=== PATIENT | female | born 1985 | race Caucasian/White ===

== ENCOUNTER → 2020-04-06 13:29 | Outpatient (CLI) | payer BC, SELFPAY ==
--- NOTE | ~2020-04-06 | US_ITS ---
EXAMINATION: US OB transvaginal DATE: 04/06/2020 14:04 INDICATION: viability. Gestational dating. TECHNIQUE: Real-time transvaginal obstetric ultrasound. FINDINGS: Ultrasound dated 02/24/2017 The uterus measures 10.6 x 6.5 x 7.3 cm. There is an intrauterine gestational sac, with pole id entified. The crown rump length measures 1.22 cm, which correlates with a estimated gestational age of 7 weeks 3 days. heart tones are identified measuring 137 BPM. Right ovary measures 4.1 x 2.4 x 3 cm and contains a slightly hypoechoic mass measuring 3 x 2.4 x 2 c m, likely an involuting corpus luteal cyst or hemorrhagic cyst, most likely benign. Left ovary is unr emarkable measuring 3.1 x 2.8 x 2.2 cm. IMPRESSION: 1. SL IUP with an EGA of 7 weeks, 3 days (EDC by current ultrasound of 11/20/2020). Reviewed, dictated and finalized at location A. IMPRESSION: 1. SL IUP with an EGA of 7 weeks, 3 days (EDC by current ultrasound of ).
== END ==
PROVIDERS: Visit Provider Nurse Practitioner
DX: Z36.9 Encounter for antenatal screening, unspecified (principal); Z3A.01 Less than 8 weeks gestation of pregnancy
CPT/HCPCS: 76817

== ENCOUNTER → 2020-04-13 10:26 | Outpatient (CLI) | payer BC, SELFPAY ==
--- NOTE | ~2020-04-13 | US_ITS ---
US OB transvaginal DATE: 04/13/2020 10:50 INDICATION: Vaginal spotting and cramping TECHNIQUE: Real-time imaging via transvaginal approach COMPARISON: None FINDINGS: The uterus measures approximately 10.7 cm height, 6.4 cm AP and 7.3 cm transverse dimension . A normally shaped intrauterine gestational sac is identified with pole and yolk sac. heart rate of 166 bpm. [place]-rump length 1.89 cm, consistent with cysts estimated gestational age of 8 weeks 3 days +/- 5 da ys; LIONEL by ultrasound is 11/20/2020, matching that for LMP. The ovaries measure 4.0 x 2.3 x 3.5 cm on the right and 2.2 x 1.2 x 2.7 cm on the left. Probable hemo rrhagic left ovarian cyst measuring 2.8 x 1.6 x 2.5 cm. There is mild free fluid in the pelvic cul-de -sac. IMPRESSION: Estimated gestational age of 8 weeks 3 days +/- 5 days; LIONEL by ultrasound is 11/20/2020 Probable hemorrhagic 2.8 x 1.6 x 2.5 cm left ovarian cyst and mild free fluid in the cul-de-sac Reviewed, dictated and finalized at Location A. Reviewed, dictated and finalized at location B. IMPRESSION: Estimated gestational age of 8 weeks 3 days +/- 5 days; LIONEL by ultr asound is 11/20/2020 Probable hemorrhagic 2.8 x 1.6 x 2.5 cm left ovarian cyst and mild free fluid i n the cul-de-sac
== END ==
PROVIDERS: Visit Provider Obstetrics & Gynecology Gynecology
DX: O26.851 Spotting complicating pregnancy, first trimester (principal); Z3A.08 8 weeks gestation of pregnancy
CPT/HCPCS: 76817

== ENCOUNTER 2020-04-13 11:46 | Outpatient (RCR) | payer BC, SELFPAY | END 2020-07-12 23:59 | disposition home or self-care (01) | LOC: ANHLAB 11:46 | PROVIDERS: Visit Provider Obstetrics & Gynecology Gynecology | DX: O26.851 Spotting complicating pregnancy, first trimester (principal); Z3A.00 Weeks of gestation of pregnancy not specified | CPT/HCPCS: 36415; 85461 ==

== ENCOUNTER 2020-04-17 16:02 | Emergency (ER) | payer BC, SELFPAY ==
[2020-04-17 16:07] VITALS: PULSE 73; RESP 16; TEMP 36.8; O2SAT 100
[2020-04-17 16:39] LABS: Basophils Absolute Auto 0.1 K/mm3 (0.0-0.1); Basophils Percent Auto 0.6 % (0.2-1.2); Eosinophils Absolute Auto 0.1 K/mm3 (0-0.3); Eosinophils Percent Auto 0.6 % (0-4.4); Hematocrit 36.6 % (37.0-47.0); Hemoglobin 11.7 g/dL (12.0-15.0); Immature Granulocyte Absolute 0.03 K/mm3 (0.00-0.031); Immature Granulocyte Percent A 0.3 % (0-0.5); Lymphocytes Absolute Auto 1.73 K/mm3 (0.9-3.2); Lymphocytes Percent Auto 17.9 % (18.3-44.2); Mean Corpuscular Hemoglobin 26.4 pg (26-34); Mean Corpuscular Volume 82.4 fl (80-100); Monocytes Absolute Auto 0.5 K/mm3 (0.1-0.6); Monocytes Percent Auto 5.1 % (2.6-8.5); Neutrophils Absolute Auto 7.3 K/mm3 (1.3-6.7); Neutrophils Percent Auto 75.5 % (45.5-73.1); Platelet Count Result 271 k/mm3 (150-375); Red Blood Count 4.44 M/mm3 (4.2-5.4); Red Cell Distribution Width 14.7 % (11.5-14.5); White Blood Count 9.6 K/mm3 (4.5-10.0)
[2020-04-17 16:43] LABS: Add Urine Microscopic? YES; Appearance Urine Cloudy (Clear); Bilirubin Urine Negative (Negative); Blood Urine Negative (Negative); Color Urine Yellow (Yellow); Glucose Urine UA 1+ mg/dL (Negative); Ketones Urine Negative (Negative); Leukocyte Esterase Ur Negative LEU/UL (Negative); Mucus Urine Rare /lpf; Nitrate Urine Negative (Negative); Protein Urine Negative (Negative); RBC Urine 0-2 /hpf (0-2); Specific Grav Ur 1.018 (1.001-1.035); Squamous Epithelial Cell Urine Many /hpf (Few); Urobilinogen Urine Negative mg/dL (<2.0); WBC Urine 0-3 /hpf
[2020-04-17 16:54] LABS: Alanine Aminotransferase 13 U/L (4-35); Albumin Level 4.3 g/dL (3.5-5.1); Alkaline Phosphatase 38 U/L (38-126); Anion Gap 8 mmol/L (8-16); Aspartate Amino Transferase 20 U/L (14-36); Bilirubin,Total 0.2 mg/dL (0.2-1.3); Blood Urea Nitrogen 9 mg/dL (7-17); Calcium 9.4 mg/dL (8.4-10.2); Carbon Dioxide 25 mmol/L (22-30); Chloride 101 mmol/L (98-107); Estimated CRCL calculation 115 ml/min; Estimated Glomerular Filt Rate > 60; Glucose 121 mg/dL (65-105); Lipase 71 U/L (23-300); Potassium 3.5 mmol/L (3.4-5.0); Sodium 134 mmol/L (137-145)
[2020-04-17 18:58] VITALS: BP 124/88; PULSE 88; RESP 16; TEMP 36.8; O2SAT 99
[2020-04-17 19:01] VITALS: BP 108/68; PULSE 60; RESP 14; O2SAT 98
[2020-04-17] MEDS: PROMETHAZINE HCL 25 MG/ML AMPUL 12.5 MG IV PUSH (19:22)
[2020-04-17] MEDS: SODIUM CHLORIDE 0.9% IV 1,000 ML 999 ML IV CONT (19:23)
--- NOTE | 2020-04-17 19:24 | ED.NAVMDI ---
HPI - Nausea/Vomiting/Diarrhea General Chief complaint: Nausea/Vomiting/Diarrhea Stated complaint: 9 wks , vomiting/dehydration Time Seen by Provider: 04/17/20 18:58 History of Present Illness HPI Narrative: Patient is a 34-year-old female who presents ER with nausea and vomiting. Worsening over the last 3 to 4 days. Reports she cannot keep anything down. She has been trying Reglan without relief. She is 9 weeks . Sent here for fluids by her OB Dr. Farfan. Denies diarrhea or abdominal pain. She has had an ultrasound to confirm placement of her IUP. Patient has also been taking Pepcid without relief. . Related Data Home Medications Medication Instructions Recorded Confirmed ergocalciferol (vitamin D2) 04/17/20 04/17/20 famotidine 04/17/20 Allergies Allergy/AdvReac Type Severity Reaction Status Date / Time No Known Allergies Allergy Verified 04/17/20 18:57 Review of Systems Review of Systems: All systems reviewed & are unremarkable except as noted in HPI and below Constitutional: Constitutional: Denies chills, Denies fever(s) and Denies weakness ENT: Denies nasal congestion and Denies sore throat Gastrointestinal: Gastrointestinal: Denies abdominal pain, Denies diarrhea, Reports nausea and Reports vomiting PMFSH Past Medical History Medical History (Updated 04/17/20 @ 20:41 by Danish Childress MD) Uterine polyp Surgical History Surgical History (Updated 04/17/20 @ 19:25 by Danish Childress MD) History of D&C Family History Family History (Updated 02/09/16 @ 23:19 by DOCTOR UNKNOWN) Father Hypertension Family history of diabetes mellitus in first degree relative Social History Social History Smoking status: Never smoker Alcohol intake: never Gender identity (if verbalized by the patient): Female Exam Narrative: Exam Narrative: GENERAL: Well-appearing, well-nourished, and in no acute distress. HEAD: Normocephalic, atraumatic. CHEST: Clear to auscultation. No respiratory distress. HEART: Regular rate and rhythm. Normal peripheral pulses. ABDOMEN: Soft, nontender, nondistended. EXTREMITIES: Normal range of motion. No edema. SKIN: Warm, dry, no rash. NEURO: Alert and oriented x3. PSYCH: Normal mood and affect. Course Course Emergency Course: Patient informed of results. Eating and drinking well. Feels better after IV fluid and Phenergan. Discharge home. Vital Signs Vital signs: Vital Signs Temperature 98.2 F 04/17/20 16:07 Pulse Rate 73 04/17/20 16:07 Respiratory Rate 16 04/17/20 16:07 Pulse Oximetry 100 04/17/20 16:07 Temperature 98.2 F 04/17/20 18:58 Pulse Rate 60 04/17/20 19:01 Respiratory Rate 14 04/17/20 19:01 Blood Pressure 108/68 04/17/20 19:01 Pulse Oximetry 98 04/17/20 19:01 MDM - Nausea/Vomiting/Diarrhea Lab Data Result diagrams: 04/17/20 16:12 04/17/20 16:12 Labs: Lab Results 04/17/20 04/17/20 04/17/20 Range/Units 16:12 16:12 16:32 WBC 9.6 (4.5-10.0) K/mm3 RBC 4.44 (4.2-5.4) M/mm3 Hgb 11.7 L (12.0-15.0) g/dL Hct 36.6 L (37.0-47.0) % MCV 82.4 (80-100) fl MCH 26.4 (26-34) pg MCHC 32.0 (32-36) g/dl RDW 14.7 H (11.5-14.5) % Plt Count 271 (150-375) k/mm3 MPV 11.0 H (7.4-10.4) fl Immature Gran % (Auto) 0.3 (0-0.5) % Neut % (Auto) 75.5 H (45.5-73.1) % Lymph % (Auto) 17.9 L (18.3-44.2) % [place] % (Auto) 5.1 (2.6-8.5) % Eos % (Auto) 0.6 (0-4.4) % Baso % (Auto) 0.6 (0.2-1.2) % Lymph # (Auto) 1.73 (0.9-3.2) K/mm3 [place] # (Auto) 0.5 (0.1-0.6) K/mm3 Eos # (Auto) 0.1 (0-0.3) K/mm3 Baso # (Auto) 0.1 (0.0-0.1) K/mm3 Abs Immat Gran (auto) 0.03 (0.00-0.031) K/mm3 Absolute Neuts (auto) 7.3 H (1.3-6.7) K/mm3 Absolute Nucleated RBC 0.0 (0.0-0.012) K/mm3 Nucleated RBC % 0.0 (0.0-0.2) % Sodium 134 L (137-145) mmol/L Potassium 3.5 (3.4-5.0) mm
[2020-04-17 20:57] VITALS: BP 112/74; PULSE 80; RESP 16; O2SAT 99
== END 2020-04-17 21:00 | disposition home or self-care (01) ==
PROVIDERS: Emergency Medicine; Emergency Provider Emergency Medicine; PCP Family Medicine
DX: O21.9 Vomiting of pregnancy, unspecified (principal); Z3A.09 9 weeks gestation of pregnancy
CPT/HCPCS: 36415; 80053; 81001; 83690; 85025; 96374; 99284; J2550; J7030

== ENCOUNTER 2020-06-29 14:13 | Outpatient (CLI) | payer BC, SELFPAY ==
--- NOTE | 2020-06-29 | ECG_ITS ---
Measurements Intervals [place] Rate: 58 P: 60 ND: 155 QRS: 69 QRSD: 88 T: 16 QT: 386 QTc: 380 Interpretive Statements SINUS BRADYCARDIA WITH SINUS ARRHYTHMIA BASELINE ARTIFACT- I, III, AVL, AVF, V1, V4 BORDERLINE ECG Electronically Signed On 06-29-2020 14:40:52 ANALYST by Prabhakar Robles D.O.
== END 2020-06-29 14:14 | disposition home or self-care (01) ==
PROVIDERS: Visit Provider Nurse Practitioner
DX: R00.2 Palpitations (principal); R94.31 Abnormal electrocardiogram [ECG] [EKG]
CPT/HCPCS: 93005

== ENCOUNTER → 2020-07-05 12:57 | Outpatient (CLI) | payer BC, SELFPAY ==
--- NOTE | ~2020-07-05 | US_ITS ---
EXAMINATION: US OB >= 14 weeks Fetus DATE: 07/05/2020 13:20 INDICATION: Second trimester anatomic survey TECHNIQUE: Real-time ultrasound of the pelvis was performed. COMPARISON: None. FINDINGS: There is a single living fetus in vertex presentation. The placenta is posterior and 5.8 cm from the internal cervical os. heart rate is 138 beats per minute (bpm). cardiac activity and fet al movement are noted. The amniotic fluid index is subjectively normal. The following anatomy was identified as normal: 4 chamber heart 3 vessel cord cord insertion kidneys urinary bladder stomach spine diaphragm ventricles cisterna magna cerebellum The following biometric data were obtained: Biparietal diameter (BPD): 5.1 cm; head circumference (HC): 19.4 cm; abdominal circumference (AC): 16 .4 cm; femur length (FL): 3.5 cm. These measurements are concordant. Estimated weight is 425 g +/- 63 g, which correlates with the 96 percentile when 11/20/2020 is u sed as estimated date of delivery. As single measurements, these parameters are each equal to the following estimated gestational ages w ith ranges of +/- 2 standard deviations: BPD: 21 weeks 4 days ( 19 weeks 6 days - 23 weeks 2 days). HC: 21 weeks 5 days ( 20 weeks 2 days - 23 weeks 1 days). AC: 21 weeks 4 days ( 19 weeks 3 days - 23 weeks 4 days). FL: 21 weeks 2 days ( 19 weeks 3 days - 23 weeks 1 days). estimated gestational age based solely on measurements from this exam is 21 weeks 4 days +/- 1 weeks 4 days. IMPRESSION: 1. Single living fetus in vertex presentation. 2. Estimated weight is 425 g +/- 63 g, which correlates with the 96 percentile when 11/20/2020 i s used as estimated date of delivery. Reviewed, dictated and finalized at location A. LY MEMBER CARETAKER IMPRESSION: 1. Single living fetus in vertex presentation. 2. Estimated weight is 425 g +/- 63 g, which correlates with the 96 perce ntile when 11/20/2020 is used as estimated date of delivery.
== END ==
PROVIDERS: Visit Provider Nurse Practitioner
DX: Z36.9 Encounter for antenatal screening, unspecified (principal); Z3A.21 21 weeks gestation of pregnancy
CPT/HCPCS: 76805

== ENCOUNTER 2020-11-10 06:42 | Inpatient (IN) | payer BC, SELFPAY ==
[2020-11-10] VITALS (167 sets, daily range): BP systolic 106–135; BP diastolic 57–92; PULSE 50–95; RESP 18; TEMP 36.1–36.9; O2SAT 90–100; BMI 22.6
[2020-11-10] MEDS: LACTATED RINGERS 1,000 ML 999 ML IV CONT (07:11)
[2020-11-10] MEDS: ONDANSETRON INJ 4 MG/2 ML VIAL IV PUSH (07:11)
--- NOTE | 2020-11-10 07:12 | LDADM ---
This patient, Padmini Caputo, was admitted to Labor/Delivery/Recovery 110 on 11/10/20 at 06:42. Plans for labor, pain management and were discussed with patient. Patient/family oriented to hospital policies and general routines including ID bracelet, bed and alarms, visiting hours, pain management, procedures, bathroom and other care routines, personal items, smoking policy, room service/diet and guest tray routines, security routines, and visiting hours. Patient/Family are encouraged to report perceived risks to care and to ask questions if they do not understand what they are told or what they should do. See OBIX for further documentation.
[2020-11-10 07:14] LABS: Basophils Percent Auto 0.2 % (0.2-1.2); Eosinophils Percent Auto 0.3 % (0-4.4); Hematocrit 44.1 % (37.0-47.0); Hemoglobin 14.2 g/dL (12.0-15.0); Immature Granulocyte Absolute 0.04 K/mm3 (0.00-0.031); Immature Granulocyte Percent A 0.4 % (0-0.5); Lymphocytes Absolute Auto 1.61 K/mm3 (0.9-3.2); Lymphocytes Percent Auto 18.1 % (18.3-44.2); Mean Corpuscular HGB Conc 32.2 g/dl (32-36); Mean Corpuscular Hemoglobin 28.5 pg (26-34); Mean Corpuscular Volume 88.4 fl (80-100); Monocytes Absolute Auto 0.6 K/mm3 (0.1-0.6); Monocytes Percent Auto 6.4 % (2.6-8.5); Neutrophils Absolute Auto 6.6 K/mm3 (1.3-6.7); Neutrophils Percent Auto 74.6 % (45.5-73.1); Platelet Count Result 154 k/mm3 (150-375); Red Blood Count 4.99 M/mm3 (4.2-5.4); Red Cell Distribution Width 13.8 % (11.5-14.5); White Blood Count 8.9 K/mm3 (4.5-10.0)
--- NOTE | 2020-11-10 07:24 | WPDANESEPP ---
Anes - Eval Pre Procedure Procedure: labor epidural Date/Time: 11/10/20 07:24 Surgeon: leonardo Preop Diagnosis: pain during labor Pre Op Diagnosis: CONTRACTIONS Patient Data Age: 35 Gender: F Height: Weight: Last Vital Signs Pulse 66 11/10/20 07:08 BP 122/84 11/10/20 07:08 Allergies Allergy/AdvReac Type Severity Reaction Status Date / Time No Known Allergies Allergy Verified 04/17/20 18:57 Home Medications Medication Instructions Recorded Confirmed Type ergocalciferol (vitamin D2) 1,250 mcg PO WEEKLY 04/17/20 11/10/20 History PNV cmb#95-ferrous fumarate-FA 1 tablet PO DAILY 10/23/20 11/10/20 History [] buspirone 10 mg PO BID 10/23/20 11/10/20 History ferrous sulfate [Iron (ferrous 325 mg PO DAILY 10/23/20 11/10/20 History sulfate)] metoclopramide HCl 10 mg PO Q6H PRN 10/23/20 11/10/20 History omeprazole 20 mg PO DAILY 10/23/20 11/10/20 History ondansetron HCl [Zofran] 4 mg PO Q6H PRN 10/23/20 11/10/20 History sertraline [Zoloft] 150 mg PO DAILY 10/23/20 11/10/20 History Laboratory Tests 11/10/20 11/10/20 07:07 07:08 WBC 8.9 K/mm3 K/mm3 (4.5-10.0) RBC 4.99 M/mm3 M/mm3 (4.2-5.4) Hgb 14.2 g/dL g/dL (12.0-15.0) Hct 44.1 % % (37.0-47.0) MCV 88.4 fl fl (80-100) MCH 28.5 pg pg (26-34) MCHC 32.2 g/dl g/dl (32-36) RDW 13.8 % % (11.5-14.5) Plt Count 154 k/mm3 k/mm3 (150-375) MPV 12.0 fl H fl (7.4-10.4) Immature Gran % (Auto) 0.4 % % (0-0.5) Neut % (Auto) 74.6 % H % (45.5-73.1) Lymph % (Auto) 18.1 % L % (18.3-44.2) [place] % (Auto) 6.4 % % (2.6-8.5) Eos % (Auto) 0.3 % % (0-4.4) Baso % (Auto) 0.2 % % (0.2-1.2) Lymph # (Auto) 1.61 K/mm3 K/mm3 (0.9-3.2) [place] # (Auto) 0.6 K/mm3 K/mm3 (0.1-0.6) Eos # (Auto) 0.0 K/mm3 K/mm3 (0-0.3) Baso # (Auto) 0.0 K/mm3 K/mm3 (0.0-0.1) Abs Immat Gran (auto) 0.04 K/mm3 H K/mm3 (0.00-0.031) Absolute Neuts (auto) 6.6 K/mm3 K/mm3 (1.3-6.7) Absolute Nucleated RBC 0.0 K/mm3 K/mm3 (0.0-0.012) Nucleated RBC % 0.0 % % (0.0-0.2) RPR Pending Patient hx anesthesia problems: none Family hx anesthesia problems: none PMFSH Past Medical History Medical History (Updated 11/10/20 @ 07:25 by Shawanda Barrera CRNA) Anxiety Depression IUP (intrauterine ), incidental Uterine polyp Surgical History Surgical History (Updated 04/17/20 @ 19:25 by Danish Childress MD) History of D&C Family History Family History Father Hypertension Family history of diabetes mellitus in first degree relative Social History Social History Smoking status: Never smoker Alcohol intake: never Substance use: never Gender identity (if verbalized by the patient): Female Spiritual care concerns: No Exam Day of Procedure 11/10/20 07:24
[2020-11-10] MEDS: LACTATED RINGERS 1,000 ML 125 ML IV CONT ×2 (07:35→14:03)
--- NOTE | 2020-11-10 15:05 | WPDOBADMIT ---
Obstetrics - Admit Note Admission Note: Patient comfortable with epidural. cervix 9 cm. fht reassuring record reviewed. No pertinent additions to the history and/or any subsequent changes in the physical findings that are not consistent with the expected course of the were found. Additions to the history and/or subsequent changes in the physical findings follow. None.
[2020-11-10] MEDS: OXYTOCIN 30 UNITS/NS 500 ML 30 UNITS/500 ML BAG 999 UNITS IV CONT (16:39)
--- NOTE | 2020-11-10 16:57 | PM.OBPRVD ---
OB - Delivery Note Procedure Delivery date: 11/10/20 Procedure: Intrapartal events: None Induction method: AROM Delivery augmentation: rupture of membranes Delivery monitor: external FHT and external uterine Route of delivery: Laceration Description: Perineal - 2nd Degree Delivery repair: vicryl Specimen: Yes Quantitative Blood Loss (ml): 130 Anesthesia type: Epidural [place] Baby Date of : 11/10/20 Time of : 16:36 Weeks of gestation at delivery: 38 Infant gender: Male Weight (pounds): 8 Weight (ounces): 13 presentation: vertex position: Left Occiput Anterior Placenta delivery description: Spontaneous cord vessel description: 3 Vessels score one minute: 9 score five minutes: 9
[2020-11-10] MEDS: OXYTOCIN 30 UNITS/NS 500 ML 30 UNITS/500 ML BAG 125 UNITS IV CONT (17:14)
[2020-11-10] MEDS: BENZOCAINE 20% AER SPR (*SP) 56 GM CAN 1 SPRAY TOPICAL (18:06)
[2020-11-10] MEDS: IBUPROFEN 600 MG TABLET PO (18:06)
[2020-11-10] MEDS: WITCH HAZEL 40 PADS 1 PAD TOPICAL (18:06)
[2020-11-10] MEDS: SERTRALINE HCL 50 MG TABLET 150 MG PO (19:45)
[2020-11-10] MEDS: busPIRone HCL 10 MG TABLET PO (19:46)
--- NOTE | 2020-11-10 20:00 | PC.NURSE ---
Patient transferred to post room #287 via wheel chair. Support person present. Oriented to unit, room, information board, rooming in, admission packet and security measures. Patient verbalizes understanding.
[2020-11-10] MEDS: ACETAMINOPHEN 325 MG TABLET 650 MG PO (21:33)
[2020-11-11] VITALS: BP 119/69; PULSE 70; RESP 18; TEMP 36.5; O2SAT 100
[2020-11-11] MEDS: IBUPROFEN 600 MG TABLET PO ×3 (04:19→17:03)
[2020-11-11 04:20] VITALS: BP 123/76; PULSE 59; RESP 16; TEMP 36.2; O2SAT 100
[2020-11-11 05:25] LABS: Hematocrit 33.6 % (37.0-47.0); Hemoglobin 11.3 g/dL (12.0-15.0)
[2020-11-11 08:30] VITALS: BP 117/75; PULSE 66; RESP 16; TEMP 36.6; O2SAT 98
[2020-11-11] MEDS: DOCUSATE SODIUM 100 MG CAPSULE PO ×2 (08:48→17:03)
[2020-11-11] MEDS: MULTIVIT/MIN/PREN/FOL AC/IRON TABLET 1 TAB PO (08:48)
[2020-11-11] MEDS: busPIRone HCL 10 MG TABLET PO ×2 (08:48→17:03)
--- NOTE | 2020-11-11 09:38 | WPDANLDPN2 ---
Anes-Prog Note L&D Date/Time: 11/11/20 09:38 Comfortable throughout: labor and delivery Neuraxial method: epidural Epidural/Spinal procedure site: clean & non-tender Neuro status: Neuro function grossly intact. Cardiovascular status: normal Respiratory status: normal Airway patency: baseline Mental status: baseline Post-Op hydration status: normal Vital Signs: Last Vital Signs Temp 36.6 C 11/11/20 08:30 Pulse 66 11/11/20 08:30 Resp 16 11/11/20 08:30 BP 117/75 11/11/20 08:30 Pulse Ox 98 11/11/20 08:30 Pain score (VAS): 0/10. Patient resting in bed at time of assessment, appears comfortable. Support person at bedside. I/O: Intake & Output 11/10/20 11/11/20 11/11/20 23:59 07:59 15:59 Intake Total 500 Balance 500 Post-procedural complaints: none Patient feedback: Patient satisfied with anesthetic care.
[2020-11-11 12:34] VITALS: BP 124/71; PULSE 62; RESP 16; TEMP 36.3; O2SAT 98
--- NOTE | 2020-11-11 13:54 | PM.OBPNVD ---
OB - PN: Subj Subjective Date/time seen: 11/11/20 13:54 S: doing well no complaints. OB - PN: Obj Data Labs CBC & Chem 7: 11/11/20 04:26 Labs: Laboratory Results - last 24 hr 11/11/20 04:26 Hgb 11.3 L Hct 33.6 L OB - PN A/P Assessment and Plan (1) (normal spontaneous vaginal delivery): Code(s): O80 - Encounter for full-term uncomplicated delivery Status: Acute Assessment and Plan: continue with pp care. Time Spent With Patient Time: Total time spent is greater than 50% in coordination of care (as documented) at patient's floor/unit and/or counseling patient: Exam GI: Other: ff below umbilicus
[2020-11-11 17:15] VITALS: PULSE 62; RESP 16; O2SAT 98
[2020-11-11] MEDS: SERTRALINE HCL 50 MG TABLET 150 MG PO (18:59)
[2020-11-11 19:00] VITALS: BP 118/79; PULSE 64; RESP 18; TEMP 36.6; O2SAT 96
--- NOTE | 2020-11-11 22:54 | PC.NURSE ---
Patient viewed the discharge video Mother & Baby Care, The First Two Weeks online. Patient was given the opportunity and encouraged to ask questions. Patient verbalized understanding of information shared and has been given the mother/baby guide for home reference.
[2020-11-12] MEDS: DOCUSATE SODIUM 100 MG CAPSULE PO (07:19)
[2020-11-12] MEDS: IBUPROFEN 600 MG TABLET PO (07:20)
[2020-11-12] MEDS: MULTIVIT/MIN/PREN/FOL AC/IRON TABLET 1 TAB PO (07:20)
[2020-11-12] MEDS: busPIRone HCL 10 MG TABLET PO (07:23)
[2020-11-12] MEDS: PANTOPRAZOLE 40 MG TABLET PO (07:26)
[2020-11-12] MEDS: LANOLIN (LANSINOH) 7.5 GM CREAM 1 APPLIC TOPICAL (07:27)
[2020-11-12 07:30] VITALS: BP 116/71; PULSE 71; RESP 18; TEMP 36.3; O2SAT 98
--- NOTE | 2020-11-12 09:59 | P.PNOB_ITS ---
OB - PN: Subj Subjective Date/time seen: 11/12/20 09:59 doing well no complaints. OB - PN: Obj Data Labs CBC & Chem 7: 11/11/20 04:26 OB - PN A/P Assessment and Plan (1) (normal spontaneous vaginal delivery): Code(s): O80 - Encounter for full-term uncomplicated delivery Status: Acute Assessment and Plan: continue with pp care. Time Spent With Patient Time: Total time spent is greater than 50% in coordination of care (as docume nted) at patient's floor/unit and/or counseling patient: Exam Narrative: Exam Narrative: ff below umbilicus
--- NOTE | 2020-11-12 10:00 | PM.OBDSVD ---
DS: Admitting Diagnosis Admitting Diagnosis Admitting Diagnosis: Labor OB - DS: Summary OB Procedures : Ultrasound OB Procedures Intrapartum: Spontaneous Vag Delivery OB Procedures: : None Peripartum Data Delivery Method: Natural Vaginal Laceration Description: Perineal - 2nd Degree complications: none Time Spent with Patient Time attestation: Total time spent providing and/or coordinating discharge services: DS: Data Data Completed and Pending Pending studies at discharge: Pending at discharge 11/10/20 14:46 Surgical [PTH] Routine Discharge Plan Discharge Attending physician on discharge: Jewel Calderón Discharging Clinician: Jewel Calderón Patient Disposition: Home, Self-Care Activity: may shower and pelvic rest Diet: as tolerated Patient Instructions: Antibiotic Form Stand Alone Forms: General Discharge Information Follow-up/Referrals: Jewel Calderón MD [Physician] - Discharge Medications: Continued ergocalciferol (vitamin D2) 1,250 mcg (50,000 unit) capsule 1,250 mcg PO WEEKLY RF: 0 sertraline [Zoloft] 100 mg Tablet 150 mg PO DAILY RF: 0 ferrous sulfate [Iron (ferrous sulfate)] 325 mg (65 mg iron) Tablet 325 mg PO DAILY RF: 0 buspirone 10 mg Tablet 10 mg PO BID RF: 0 omeprazole 20 mg Tablet,Delayed Release (Dr/Ec) 40 mg PO DAILY RF: 0 PNV cmb#95-ferrous fumarate-FA [] 28 mg iron- 800 mcg Tablet 1 tablet PO DAILY RF: 0 Discontinued ondansetron HCl [Zofran] 4 mg Tablet 4 mg PO Q6H PRN (Reason: Nausea) RF: 0 metoclopramide HCl 10 mg Tablet 10 mg PO Q6H PRN (Reason: Nausea) RF: 0 Date of admission: 11/10/20 06:42 Primary Care Provider: PHYSICIAN,TUBE BACKER Admitting Provider: Sabrina Farfan Attending physician on admission: Sabrina Farfan Condition: Stable
[2020-11-13 11:30] LABS: Rapid Plasma Reagin Non-Reactive (NonReactive)
[2020-11-14 09:00] VITALS: BP 122/84; PULSE 77; RESP 16; TEMP 37.4; O2SAT 97
== END 2020-11-12 14:08 | disposition home or self-care (01) | DRG 806 ==
LOC: ANHOB2 11-12 12:55 → ANHLDR 11-13 16:08 → ANHOB2 11-13 16:08
PROVIDERS: Admitting Provider Obstetrics & Gynecology; Visit Provider Obstetrics & Gynecology
DX: O77.0 Labor and delivery complicated by meconium in amniotic fluid (principal); O98.32 Other infections with a predominantly sexual mode of transmission complicating childbirth; Z37.0 Single live birth; Z3A.38 38 weeks gestation of pregnancy; B00.9 Herpesviral infection, unspecified; O36.8330 Maternal care for abnormalities of the fetal heart rate or rhythm, third trimester, not applicable or unspecified; O70.1 Second degree perineal laceration during delivery; O99.62 Diseases of the digestive system complicating childbirth; K21.9 Gastro-esophageal reflux disease without esophagitis; O99.344 Other mental disorders complicating childbirth; F41.8 Other specified anxiety disorders
CPT/HCPCS: 36415; 85014; 85018; 85025; 86592; 86850; 86900; 86901; 88307; A9270; J2405; J2590; J2795; J7120

== ENCOUNTER 2020-11-14 10:56 | Outpatient (RCR) | payer BC, SELFPAY ==
--- NOTE | 2020-11-14 14:44 | PC.NURSE ---
IN 1005 OUT 1100 HISTORY: Pt. delivered at [facility] at term. had no complications after delivery. Mother had no complications after delivery. is now 4 days old. appears to be well cared for. Infant will be seen by ICP as scheduled this . Mother reports: She has struggled with latching since . is eager, latching shallow causing cracks and blistering to nipples. Infant is feeding every 2-3 hours nursing for 20-25 minutes per feeding. Mother has not pumped or supplemented Mother wishes: Resolve latch issues. Currently at 4 wets per day and 4-5 green/yellow seedy stools per day. weight: 8#3 Discharge weight: 7#13 Last Weight:7#11 today at follow up visit OBSERVATION: Mother has cracks,scabbing to both nipples, right more than left. Mother puts to breast in cradle, allowing infant to self attach shallow to nipple. Infant does not have good alignment to breast or level to breast. Mother is grimacing in pain. Requested mother release latch. Assisted with pillows and wrist roll. Reviewed positioning/alignment in cross cradle, holding breast in U hold and guided asymmetrical latch on. is very busy with hands to mouth and thrashing head. Mother has difficulties holding to start a good latch. FOB assists with holding infant hands. Infant was able to latch correctly and deeply, (with assist). Mother continues to report pain with feeding. Latch appeared correct by all markers of flanged lips, wide open mouth, and rhythmical draws. nursed eagerly, with steady draws and frequent swallowing noted. Reviewed signs of a correct latch, effective nursing and suck swallow ratio. Demonstrated how to adjust latch more deeply while infant remains feeding. Several attempts to adjust latch without relief to mother. Feeding options reviewed to pump and bottle feed for 24 hours to allow nipples to heal or to attempt latch using nipple shield. Mother would like to attempt nursing using the nipple shield. Nipple shield provided to mother due to cracked nipples. Instructions given on application and cleaning of shield. Discussed nipple shield precautions and possible complications. Patient able to return demonstration on proper application of shield. Discussed the need to initiate pumping if infant continues to nurse with the shield. Patient verbalizes understanding. With shield in place was able to latch deeply and nurse with less discomfort to mother. Infant was able to maintain latch nursing with steady draws and occasional swallowing noted. Mother reports much less discomfort, only slight tenderness with this feeding. Reviewed to pump a few minutes after each feeding using shield. Infant nursed for 20 minutes, and content after feeding. Mother reports she has minimal tenderness at this time. Reviewed nipple care of lanolin and warm compresses as needed. Follow up phone call scheduled for after ICP appointment. PLAN: Mother will follow above feeding plan. Mother will call with further questions or concerns.
== END 2021-01-01 08:16 | disposition home or self-care (01) ==
LOC: ANHOBOP 10:56
PROVIDERS: PCP Pediatrics; Visit Provider Pediatrics
DX: Z39.1 Encounter for care and examination of lactating mother (principal)
CPT/HCPCS: 99212; G0463

== ENCOUNTER 2022-12-31 14:40 | Outpatient (RCR) | payer BC, SELFPAY ==
--- NOTE | 2022-12-31 16:26 | OPREHPOC ---
Outpatient Therapy Plan of Care This is a Multidisciplinary Plan of Care that may contain components documented by all disciplines (PT, OT, and ST.) PT Problem 1 PT Problem #1 Knowledge Deficit PT Goal 1 Goal Pt to report IND with HEP Target Visit 4 PT Problem 2 PT Problem #2 Pain PT Goal 1 Goal Pt to report shoulder pain no greater than 3/10 in the last week Target Visit 4 PT Goal 2 Goal Pt to report 75% improvement in overall symptoms. PT Problem 3 PT Problem #3 Impaired Sensation PT Goal 1 Goal Pt to report no altered sensations in the last week Target Visit 4 PT Problem 4 PT Problem #4 Impaired Strength PT Goal 1 Goal Pt to demonstrate equal scapular mobility with resisted shoulder motions.
--- NOTE | 2022-12-31 16:26 | PTOPEVAL1 ---
Assessment and note entered by Nehal Ochoa, PT, DPT Evaluation Information Assessment Status Evaluation Diagnosis cervicalgia Onset ~1 month Subjective Information Pt states she initially has a pain under her R shoulder blade, without neck pain. She woke up one day and could not laterally flex or rotate her head to the R, this felt better after about a week . She continues to have a dull ache under the shoulder blade. She went to the chiropractor and they initially thought a herniated disk. She does a lot of yoga and states that handstands, forearm stands, and head stands increase her pain. Reported Pain Level Pain Score 2: Self Report Assessment PT Clinical Summary Padmini presents to therapy today for her initial evaluation with a diagnosis of neck pain. Today she demonstrates decreased motion with R rotation and R lateral flexion. 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 She reports an increase in pain with any closed chair shoulder/scapular motion. Skilled physical therapy services are indicated to improve shoulder stability, body mechanics, and to return to PLOF without limitations. Plan of Care Interventions Electrical Stimulation,Hot Pack/Cold Pack,Manual Therapy,Neuro Re-education,Patient/Caregiver Educati,Therapeutic Activities,Therapeutic Exercise PT Services Indicated Yes Treatment Frequency and 1x/wk for 4 wks Duration These treatments will address the objective and functional deficits as defined above. The patient will be advanced safely and appropriately in order for the patient to progress towards his/her prior level of function. Additional exercises will be introduced and as well as a comprehensive home exercise program upon discharge, if needed, ?to ensure carryover of functional gains achieved in the clinic. This treatment plan has been reviewed and agreement upon by the patient.
--- NOTE | 2023-01-10 09:56 | PCPTNOTE ---
Patient called & cancelled scheduled appointment this date due to not having transportation.
--- NOTE | 2023-03-10 11:37 | PTOPDC ---
Assessment and note entered by Nehal Ochoa, PT, DPT Evaluation Information Assessment Status Discharge - Pt Not Present Diagnosis cervicalgia Onset ~1 month Subjective Information Pt was evaluated on 12/31 and called her next appointment on 01/09 and never called back to reschedule. Assessment PT Clinical Summary Pt completed 1 visit of skilled therapy on 12/31/22. She will be discharged at this time d/t poor therapy attendance. If she needs additional therapy at a later date, she will need a new order . Plan of Care PT Services Indicated No
== END 2023-03-10 13:09 | disposition home or self-care (01) ==
LOC: ANHGOSHPT 14:40
PROVIDERS: PCP Family Medicine; Visit Provider Family Medicine
DX: M54.2 Cervicalgia (principal)
CPT/HCPCS: 97110; 97161

== ENCOUNTER → 2023-01-02 14:51 | Outpatient (CLI) | payer BC, SELFPAY ==
--- NOTE | ~2023-01-02 | XR_ITS ---
[id number] INDICATION: Cervicalgia TECHNIQUE: 3 views of the cervical spine. FINDINGS: No prior studies for comparison. The cervical spine is visualized to the cervicothoracic junction. There is no prevertebral soft tiss ue swelling, listhesis, or loss of vertebral body height. Intervertebral disc spaces are normal. Th e osseous central canal is patent. No displaced cervical spine fractures are identified. IMPRESSION: 1. No significant osseous abnormality of the cervical spine. Reviewed, dictated and finalized at location L.
== END ==
PROVIDERS: PCP Family Medicine; Visit Provider Family Medicine
DX: M54.2 Cervicalgia (principal)
CPT/HCPCS: 72040

== ENCOUNTER → 2023-02-24 15:58 | Outpatient (CLI) | payer BC, SELFPAY ==
--- NOTE | ~2023-02-24 | US_ITS ---
EXAMINATION: US soft tissue head and neck DATE: 02/24/2023 16:17 INDICATION: Localized swelling, mass and lump, neck. TECHNIQUE: Multiple grayscale and Doppler ultrasound images of the head and neck were obtained. COMPARISON: CT neck 12/07/2014 FINDINGS: There is no abnormal mass or lymphadenopathy in the patient's area of concern in right neck . IMPRESSION: 1. No abnormal mass or lymphadenopathy in the patient's area of concern in right neck. Reviewed, dictated and finalized at location A. IMPRESSION: 1. No abnormal mass or lymphadenopathy in the patient's area of concern in righ t neck.
== END ==
PROVIDERS: PCP Nurse Practitioner Family; Visit Provider Nurse Practitioner Family
DX: R22.1 Localized swelling, mass and lump, neck (principal)
CPT/HCPCS: 76536

== ENCOUNTER 2023-03-18 09:00 | Outpatient (CLI) | payer BC, SELFPAY ==
--- NOTE | ~2023-03-18 | US_ITS ---
EXAMINATION: US transvaginal DATE: 03/18/2023 09:48 INDICATION: Pelvic pain TECHNIQUE: Multiple endovaginal sonographic images of the pelvis were obtained. COMPARISON: None. FINDINGS: The uterus measures 6.8 x 3.5 x 4.9 cm. The endometrial complex measures 6 mm. The right ov geo measures 2.4 x 1.7 x 2.3 cm. The left ovary measures 3. 2 x 2 by 2.1 cm. There is normal vascular flow in the ovaries. There is no free fluid in the pelvis. IMPRESSION: 1. No sonographic correlate for the patient's symptoms. Reviewed, dictated and finalized at location L.
== END 2023-03-18 09:01 ==
PROVIDERS: PCP Nurse Practitioner; Visit Provider Nurse Practitioner
DX: R10.2 Pelvic and perineal pain (principal)
CPT/HCPCS: 76830

== ENCOUNTER 2023-06-27 13:58 | Outpatient (CLI) | payer BC, SELFPAY ==
--- NOTE | ~2023-06-27 | XR_ITS ---
AP view of the pelvis and AP and lateral views of the right hip Clinical history: Pain Findings: No acute fracture or dislocation is seen. Osseous alignment is anatomic. Bilateral hip and SI joint spaces are preserved. Soft tissues are unremarkable. Impression: No significant abnormality is seen. Reviewed, dictated and finalized at [facility]. HEALTH NURSE Impression: No significant abnormality is seen.
== END 2023-06-27 13:59 ==
PROVIDERS: PCP Nurse Practitioner Family; Visit Provider Nurse Practitioner Family
DX: M25.551 Pain in right hip (principal)
CPT/HCPCS: 73502

== ENCOUNTER 2023-07-21 14:13 | Outpatient (CLI) | payer BC, SELFPAY ==
--- NOTE | ~2023-07-21 | MR_ITS ---
EXAMINATION: MR hip RT wo con DATE: 07/21/2023 15:23 INDICATION: Right hip pain TECHNIQUE: Magnetic resonance imaging (MRI) of the right hip was performed without intravenous contr ast. Sequences included full-field axial PD-weighted FS FSE and T1-weighted FSE, coronal of the pelvi s with PD-weighted FS FSE, T2-weighted FSE and T1-weighted FSE, small field of view of the right hip with axial PD-weighted FS FSE, sagittal PD-weighted FS FSE, coronal PD-weighted FS FSE and coronal T2 weighted FSE. Additional radial T1-weighted FGR oriented orthogonal to the acetabular rim were obt ained for evaluation of the labrum. COMPARISON: Right hip radiographs dated 06/27/2023 FINDINGS: Bones/labrum/cartilage: Alignment is normal. No fracture, avascular necrosis or pathologic marrow replacing process. There i s a tear of the anterosuperior right acetabular labrum which extends to the posterosuperior labrum. T here is a small central os acetabulum within the intervening superolateral labrum. There is a small p noelle labral cyst arising at the 1:30 position of the anterosuperior labrum. There is a small fissure a t the superolateral chondral labral junction near the level of the acetabulum. Articular cartilage ap pears otherwise normal. There appears be decreased femoral head neck offset at the anterosuperior rig ht femoral neck which could predispose towards cam-type femoral acetabular impingement. Mild lower teddy mbar spondylosis with mild disc height loss and disc bulge resulting in minimal central canal stenosi s at L4-L5. Fluid: Symmetric physiologic amount of fluid within both hip joints. There is a small amount of likely physi ologic free fluid in the cul-de-sac. Soft tissues: Normal and symmetric muscle bulk and signal in the pelvis and visualized proximal thighs. The iliopso as, gluteal and proximal hamstring tendons are normal. There are few small bilateral T2 hyperintense ovarian cysts/follicles the largest cyst/dominant follicle measuring 1.6 cm the right ovary. Limited evaluation of visceral organs of the pelvis is otherwise unremarkable. No pathologically enlarged pe lvic/inguinal lymphadenopathy. IMPRESSION: 1. Tear of the anterosuperior to posterior superior right acetabular labrum with intervening superola teral os acetabulum. 2. Decreased anterosuperior right femoral head neck offset could predispose towards cam PET from acet abular impingement. Reviewed, dictated and finalized at location A. [employer] O[employer] CONSULTANT IMPRESSION: 1. Tear of the anterosuperior to posterior superior right acetabular labrum wit h intervening superolateral os acetabulum. 2. Decreased anterosuperior right femoral head neck offset could predispose tow ards cam PET from acetabular impingement.
== END 2023-07-21 14:14 ==
LOC: GOSHIMG 14:17
PROVIDERS: PCP Nurse Practitioner Family; Visit Provider Nurse Practitioner Family
DX: M53.86 Other specified dorsopathies, lumbar region (principal); S73.191D Other sprain of right hip, subsequent encounter; X58.XXXD Exposure to other specified factors, subsequent encounter
CPT/HCPCS: 73721

== ENCOUNTER 2025-03-25 14:20 | Outpatient (CLI) | payer BC, SELFPAY ==
--- NOTE | ~2025-03-25 | US_ITS ---
EXAMINATION: US pelvic complete w TV, 03/25/2025 14:27 CDT HISTORY: Abn uterine and vaginal bleeding Comparison: None Technique: Ware-scale and color Doppler images were obtained. Findings: Uterus: Uterus anteverted 7.9 x 4.6 x 3.9 cm. . Endometrium 5 mm. Right Ovary:Right ovary 2.8 x 2.5 x 2.4 cm, no adnexal mass, normal fluid. Left Ovary: Left ovary 1.8 x 2.1 x 2.4 cm, no adnexal mass, normal flow. Free Fluid: None Impression: No etiology to explain the patient's symptoms Reviewed, dictated and finalized at location A. Impression: No etiology to explain the patient's symptoms
== END 2025-03-25 14:21 | disposition home or self-care (01) ==
PROVIDERS: PCP Family Medicine; Visit Provider Nurse Practitioner Women's Health
DX: N93.8 Other specified abnormal uterine and vaginal bleeding (principal)
CPT/HCPCS: 76830; 76856